=== PATIENT | female | born 1975 | race Caucasian/White ===

== ENCOUNTER 2021-09-15 16:43 | Emergency (ER) | payer BC ==
[2021-09-15 17:10] VITALS: BP 162/93; PULSE 89; RESP 18; TEMP 98.5
--- NOTE | 2021-09-15 18:57 | US ---
EXAMINATION TYPE: US venous doppler duplex LE LT DATE OF EXAM: 09/15/2021 6:37 PM COMPARISON: NONE CLINICAL HISTORY: pain, redness. pain, redness, edema left lower leg SIDE PERFORMED: left TECHNIQUE: The lower extremity deep venous system is examined utilizing real time linear array sonog anabell with graded compression, doppler sonography and color-flow sonography. VESSELS IMAGED: Common Femoral Vein Deep Femoral Vein Greater Saphenous Vein * Femoral Vein Popliteal Vein Small Saphenous Vein * Proximal Calf Veins (* superficial vessels) Left Leg: Technical limitations due to patient's body habitus 300+ pounds. no evidence of DVT IMPRESSION: No evidence of deep vein thrombosis in the left leg.
--- NOTE | 2021-09-15 19:16 | ED ---
Lower Extremity Injury HPI - General Chief Complaint: Extremity Injury, Lower Stated Complaint: LLL pain/swelling, urgent care sentR/O blood clot Time Seen by Provider: 09/15/21 18:00 Source: patient, RN notes reviewed Mode of arrival: ambulatory Limitations: no limitations - History of Present Illness Initial Comments: Patient is a 46-year-old female presenting to emergency Department with complaints of pain in her left lower leg over the past couple days. She went to urgent care today for a checkup and they sent her into the ER to rule out a bloo d clot. She's been having some redness, pain in her left lower leg. No specific injuries or events. No history of DVTs, no chest pain or short of breath, no cough. She did have viral type symptoms over the past couple days with a fever at home 3 days ago. She has not had a fever the past 48 hours. She has had no recent travel, she is on control. There are no further complaints at this time. - Related Data Home Medications Medication Instructions Recorded Confirmed Ascorbic Acid/Collagen Hydr 1 cap PO HS 09/15/21 09/15/21 [Collagen Plus Vit C Capsule] Cetirizine HCl [Zyrtec] 10 mg PO HS 09/15/21 09/15/21 Cholecalciferol [Vitamin D3 (25 25 mcg PO DAILY 09/15/21 09/15/21 Mcg = 1000 Iu)] Ibuprofen [Motrin Ib] 400 mg PO Q8H PRN 09/15/21 09/15/21 Magnesium 250 mg PO DAILY 09/15/21 09/15/21 Multivitamins, Thera [Multivitamin 1 tab PO DAILY 09/15/21 09/15/21 (formulary)] Zinc 50 mg PO DAILY 09/15/21 09/15/21 Previous Rx's Medication Instructions Recorded Cephalexin [Keflex] 500 mg PO Q6HR 7 Days #28 cap 09/15/21 Allergies Allergy/AdvReac Type Severity Reaction Status Date / Time No Known Allergies Allergy Verified 09/15/21 18:03 Review of Systems ROS Statement: Those systems with pertinent positive or pertinent negative responses have been documented in the HPI. ROS Other: All systems not noted in ROS Statement are negative. Past Medical History Past Medical History: No Reported History History of Any Multi-Drug Resistant Organisms: None Reported Past Surgical History: Breast Surgery Additional Past Surgical History / Comment(s): cyst removal on hand, bone spur removed, Past Psychological History: No Psychological Hx Reported Smoking Status: Former smoker Past Alcohol Use History: Occasional Past Drug Use History: None Reported General Exam - General Exam Comments Initial Comments: GENERAL: Patient is well-developed and well-nourished. Patient is nontoxic and in no acute distress. HEAD: Atraumatic, normocephalic. EYES: Pupils equal round and reactive to light, extraocular movements intact, sclera anicteric, conjunctiva are normal. Eyelids were unremarkable. ENT: Moist mucous membranes. NECK: Normal range of motion, supple without lymphadenopathy or JVD. LUNGS: Unlabored respirations. Breath sounds clear to auscultation bilaterally and equal. No wheezes rales or rhonchi. HEART: Regular rate and rhythm without murmurs, rubs or gallops. MUSCULOSKELETAL: Normal extremities with adequate strength and normal range of motion, no pitting or edema. No clubbing or cyanosis. NEUROLOGICAL: Patient is alert and oriented x 3. SKIN: Warm, Dry, normal turgor, no rashes or lesions noted. Patient has some mild swelling noted to the left lower leg, there is a small area of erythema on the medial aspect, neurovascularly intact. Limitations: no limitations Course Vital Signs 09/15/21 17:06 Temperature 98.5 F Pulse Rate 89 Respiratory 18 Rate Blood Pressure 162/93 O2 Sat by Pulse 98 Oximetry Medical Decision Making - Medical Decision Making Patient is a 46-year-old female here with left lower leg pain over the past couple days. She was sent in by urgent care to rule out a DVT. No history of DVTs. Ultrasound today reveals no evidence of a DVT. She does have some mild erythema and swelling, we'll treat her for mild cellulitis. We will start her on Keflex. She is agreeable with plan of care and is stable for discharge. Disposition Clinical Impression: Cellulitis of left lower leg Disposition: HOME SELF-CARE Condition: Stable Instructions (If sedation given, give patient instructions): Cellulitis (ED) Additional Instructions: Please return to the Emergency Department if symptoms worsen or any other concerns. Take antibiotics as prescribed. Elevate above the heart level throughout the day to help with swelling. Follow-up with your primary care physician. Prescriptions: Cephalexin [Keflex] 500 mg PO Q6HR 7 Days #28 cap Is patient prescribed a controlled substance at d/c from ED?: No Referrals: Oni Modi Jr, [Primary Care Provider] - 1-2 days Time of Disposition: 19:08
== END 2021-09-15 19:32 | disposition home or self-care (01) ==
LOC: EC 16:43
DX: L03.116 Cellulitis of left lower limb (principal); Z79.1 Long term (current) use of non-steroidal anti-inflammatories (NSAID); Z87.891 Personal history of nicotine dependence
CPT/HCPCS: 99283

== ENCOUNTER 2023-08-03 20:24 | Emergency (ER) | payer BC ==
[2023-08-03 20:29] VITALS: BP 160/93; PULSE 105; RESP 22; TEMP 99
--- NOTE | 2023-08-03 21:20 | ED ---
Skin/Abscess/FB HPI - General Chief complaint: Skin/Abscess/Foreign Body Stated complaint: Left Leg Cellulitis Time Seen by Provider: 08/03/23 20:31 Source: patient Mode of arrival: ambulatory Limitations: no limitations - History of Present Illness Initial comments: Patient is a 48-year-old female who presents to the emergency department for left leg redness. She reports redness and mild swelling that started yesterday. States she was poked by [employer] in her garden 2 days ago and noticed redness around the spots she was poked. She denies pain. Denies fever, chills, nausea, vomiting. Denies chest pain and shortness of breath. Patient is very anxious due to history of cellulitis in this leg. - Related Data Home Medications Medication Instructions Recorded Confirmed Ascorbic Acid/Collagen Hydr 1 cap PO HS 09/15/21 09/15/21 [Collagen Plus Vit C Capsule] Cetirizine HCl [Zyrtec] 10 mg PO HS 09/15/21 09/15/21 Cholecalciferol [Vitamin D3 (25 25 mcg PO DAILY 09/15/21 09/15/21 Mcg = 1000 Iu)] Ibuprofen [Motrin Ib] 400 mg PO Q8H PRN 09/15/21 09/15/21 Magnesium 250 mg PO DAILY 09/15/21 09/15/21 Multivitamins, Thera [Multivitamin 1 tab PO DAILY 09/15/21 09/15/21 (formulary)] Zinc 50 mg PO DAILY 09/15/21 09/15/21 Previous Rx's Medication Instructions Recorded Cephalexin [Keflex] 500 mg PO Q6HR 7 Days #28 cap 09/15/21 Cephalexin [Keflex] 500 mg PO Q6HR #20 cap 08/03/23 Allergies Allergy/AdvReac Type Severity Reaction Status Date / Time No Known Allergies Allergy Verified 08/03/23 20:29 Review of Systems ROS Statement: Those systems with pertinent positive or pertinent negative responses have been documented in the HPI. ROS Other: All systems not noted in ROS Statement are negative. Past Medical History Past Medical History: No Reported History History of Any Multi-Drug Resistant Organisms: None Reported Past Surgical History: Breast Surgery Additional Past Surgical History / Comment(s): cyst removal on hand, bone spur removed, Past Psychological History: No Psychological Hx Reported Smoking Status: Former smoker Past Alcohol Use History: Occasional Past Drug Use History: None Reported General Exam Limitations: no limitations General appearance: alert Respiratory exam: Present: normal lung sounds bilaterally. Absent: respiratory distress, wheezes, rales, rhonchi, stridor Cardiovascular Exam: Present: regular rate, normal rhythm, normal heart sounds. Absent: systolic murmur, diastolic murmur, rubs, gallop, clicks Extremities exam: Present: other (Bilateral extremity edema) Left Lower Leg exam: Present: erythema (mild surrounding multiple punctate spots. No warmth, blanching. No tenderness including calf tenderness.). Absent: palpable cord, Homans' sign Neurovascular tendon exam: Present: no vascular compromise Neurological exam: Present: alert Psychiatric exam: Present: normal affect, normal mood Skin exam: Present: warm, dry, intact, normal color. Absent: rash Course Vital Signs 08/03/23 20:25 Temperature 99.0 F Pulse Rate 105 H Respiratory 22 Rate Blood Pressure 160/93 O2 Sat by Pulse 100 Oximetry Medical Decision Making - Medical Decision Making Was pt. sent in by a medical professional or institution (Dr. PA, CHIROPRACTIC NEUROLOGIST, urgent care, hospital, or detention...) When possible be specific @ -No Did you speak to anyone other than the patient for history (EMS, parent, family, police, friend...)? What history was obtained from this source @ -No Did you review nursing and triage notes (agree or disagree)? Why? @ -I reviewed and agree with nursing and triage notes Were old charts reviewed (outside hosp., previous admission, EMS record, old EKG, old radiological studies, urgent care reports/EKG's, detention records)? Report findings @ -No old charts were reviewed Differential Diagnosis (chest pain, altered mental status, abdominal pain women, abdominal pain men, vaginal bleeding, weakness, fever, dyspnea, syncope, headache, dizziness, GI bleed, back pain, seizure, CVA, palpatations, mental health)? @ALLERGIC reaction, cellulitis, abscess EKG interpreted by me (3pts min.). @ -As above X-rays interpreted by me (1pt min.). @ -None done CT interpreted by me (1pt min.). @ -None done U/S interpreted by me (1pt. min.). @ -None done What testing was considered but not performed or refused? (CT, X-rays, U/S, labs)? Why? @ -None What meds were considered but not given or refused? Why? @ -None Did you discuss the management of the patient with other professionals (professionals i.e. , PA, CHIROPRACTIC NEUROLOGIST, lab, RT, psych nurse, executive secretary social welfare, wound/ostomy clinical nurse specialist, teacher, customs officer, caseworker intake)? Give summary @ -No Was smoking cessation discussed for >3mins.? @ -No Was critical care preformed (if so, how long)? @ -No Were there social determinants of health that impacted care today? How? (Homelessness, low income, unemployed, alcoholism, drug addiction, transportation, low edu. Level, literacy, decrease access to med. care, assisted, rehab)? @ -No Was there de-escalation of care discussed even if they declined (Discuss DNR or withdrawal of care, Hospice)? DNR status @ -No What co-morbidities impacted this encounter? (DM, HTN, Smoking, COPD, CAD, Cancer, CVA, ARF, Chemo, Hep., AIDS, mental health diagnosis, sleep apnea, morbid obesity)? @ -None Was patient admitted / discharged? Hospital course, mention meds given and route, prescriptions, significant lab abnormalities, going to OR and other pertinent info. @ -Patient presenting with for redness to left lower extremity. Exam reveals mild erythema surrounding multiple punctate spots. No warmth, blanching. No tenderness including calf tenderness. Neurovascularly intact. I do feel that this is an ALLERGIC reaction. Patient very anxious due to history of cellulitis in this leg. The region was marked with a skin marker. Because it is a holiday weekend I will prescribe patient with Keflex for possible cellulitis. Patient will watch symptoms closely and follow up with her primary care provider. Take Keflex as needed. Discussed indications. Patient verbalizes understanding. Undiagnosed new problem with uncertain prognosis? @ -No Drug Therapy requiring intensive monitoring for toxicity (Heparin, Nitro, Insulin, Cardizem)? @ -[No] Were any procedures done? @ -[No] Diagnosis/symptom? @ Rash Acute, or Chronic, or Acute on Chronic? @ -[Acute Uncomplicated (without systemic symptoms) or Complicated (systemic symptoms)? @ Uncomplicated Side effects of treatment? @ -[No] Exacerbation, Progression, or Severe Exacerbation? @ -[No] Poses a threat to life or bodily function? How? (Chest pain, [place], [place], pneumonia, PE, COPD, DKA, ARF, appy, cholecystitis, CVA, Diverticulitis, Homicidal, Suicidal, threat to staff... and all critical care pts) @ -No Dr. Tobias is my attending Disposition Clinical Impression: Rash Disposition: HOME SELF-CARE Condition: Good Instructions (If sedation given, give patient instructions): Cellulitis (ED) Additional Instructions: Take Benadryl for rash. Elevate the extremity. Take antibiotic if symptoms worsen including worsening redness that is warm, painful. Follow-up with her primary care provider in one to 2 days. Return emergency department if you experience new, concerning, or worsening symptoms Prescriptions: Cephalexin [Keflex] 500 mg PO Q6HR #20 cap Is patient prescribed a controlled substance at d/c from ED?: No Referrals: Oni Modi Jr, [Primary Care Provider] - 1-2 days
== END 2023-08-03 21:23 | disposition home or self-care (01) ==
LOC: EC 20:24
DX: R21 Rash and other nonspecific skin eruption (principal); Z87.891 Personal history of nicotine dependence
CPT/HCPCS: 99283